=== PATIENT | male | born 1970 | race Caucasian/White ===

== ENCOUNTER 2016-07-11 18:13 | Emergency (ER) | payer SELFPAY ==
--- NOTE | ~2016-07-11 | CR63 ---
[facility] A Service of [facility] & [facility] RADIOLOGY TEXT RESULTS PATIENT: HAYDER LI LOCATION: [facility] : 68 UNIT #: [id number] AGE: [address]: Bret Garcia SEX: M ORDER DR: [id number] [facility] [address]. [place], [place] [address] [id number] E MR#: [id number] Acc #: [id number] NAME: HAYDER LI : 1970 SEX: M STUDY DATE/TIME: 07/11/2016 19:00 UNIT: [facility] ROOM: STUDY DESCRIPTION: CR Chest 2 View Attending Physician: Bret Garcia Ordering Physician: Bret Garcia Primary Care Physician: Primary Care Physician No MEDICAL IMAGING REPORT This report is preliminary unless electronic signature is present EXAM PA and lateral chest HISTORY Cough and congestion for 3 days FINDINGS Two views of the chest demonstrate the cardiac size and vascularity are normal. No infiltrates or effusions. Lower thoracic mild to moderate hypertrophic changes. Mild linear atelectasis or scarring in the lung apices. IMPRESSION No acute findings, no active disease. Dictated by... Elías Herrera M.D. THIS IS AN ELECTRONICALLY VERIFIED REPORT Elías Herrera M.D. at 07/12/2016 8:51 PM DFL/to TD: 07/11/2016 22:00 JOB #: [id number] MEDICAL IMAGING REPORT Page 1 of 1 COPY
[2016-07-11 18:05] LABS: INFLUENZA A NEG (NEG); INFLUENZA B NEG (NEG)
[~2016-07-11 18:13] MED LIST: ALBUTEROL17 GM INH; CIPRO HC OTIC S10 ML OT; PEN-VEE K PO; VIBRAMYCIN100 M1 PO; VICODIN PO
== END 2016-07-11 20:36 | disposition home or self-care (01) ==
LOC: CED 18:13
PROVIDERS: Nurse Practitioner
DX: J06.9 Acute upper respiratory infection, unspecified (principal); F17.210 Nicotine dependence, cigarettes, uncomplicated
CPT/HCPCS: 71020; 87804; 99283